=== PATIENT | male | born 1970 | race African-American/Black ===

== ENCOUNTER 2019-03-13 08:58 | Outpatient (CLI) | payer BC ==
--- NOTE | 2019-03-13 09:24 | ULT ---
US Gallbladder RUQ: 03/13/2019 12:00 AM CLINICAL HISTORY: Right upper quadrant abdominal pain. STUDY: Limited right upper quadrant ultrasound of abdomen. COMPARISON: None. FINDINGS: Liver: Size: Normal. Echogenicity: Normal. Contour: Smooth. Mass: None. Bile ducts: No intrahepatic or extrahepatic biliary dilatation. Common bile duct measures 4 mm. Gallbladder: Normal. Pancreas: Head, body, and tail appear normal. Right kidney: No pelvicalyceal dilatation. Right kidney measuring 9.2 cm in length. IMPRESSION: Unremarkable exam.
== END 2019-03-13 08:59 | disposition home or self-care (01) ==
LOC: SCSULT 08:58
PROVIDERS: ATTEND Family Medicine
DX: R10.11 Right upper quadrant pain (principal)
CPT/HCPCS: 76705

== ENCOUNTER 2020-08-05 15:05 | Outpatient (CLI) | payer OTHER ==
--- NOTE | 2020-08-05 16:42 | MRI ---
EXAM: MRI cervical spine without contrast HISTORY: Cervical radiculopathy. COMPARISON: None FINDINGS: Evaluation is limited by patient motion. Cervical alignment appears normal. Vertebral body heights are preserved. No focal concerning regional marrow signal abnormality is evident. The cervical medullary junction and cervical spinal cord demonstrate a normal MR appearance. C2-C3: Mild bilateral facet arthrosis, without significant central canal or foraminal narrowing apparent. C3-C4: Broad-based disc bulge without significant central canal or foraminal narrowing apparent. C4-C5: Broad-based disc bulge and mild bilateral uncinate process hypertrophy without significant central ca nal or foraminal narrowing apparent. C5-C6: Broad-based disc bulge and bilateral uncinate process hypertrophy. Moderate-severe right foraminal na rrowing. No significant central canal or left foraminal narrowing apparent. C6-C7: No significant central canal or foraminal narrowing apparent. C7-T1: No significant central canal or foraminal narrowing apparent. Mild bilateral facet arthrosis. IMPRESSION: Cervical degenerative change as described above.
== END 2020-08-05 15:06 | disposition home or self-care (01) ==
LOC: BICMRI 15:05
PROVIDERS: ATTEND Family Medicine
DX: M47.22 Other spondylosis with radiculopathy, cervical region (principal)
CPT/HCPCS: 72141

== ENCOUNTER 2023-04-21 17:00 | Outpatient (CLI) | payer BC | END 2023-04-21 17:01 | disposition home or self-care (01) | LOC: SLEEPLAB 17:00 | PROVIDERS: ATTEND Family Medicine | DX: G47.33 Obstructive sleep apnea (adult) (pediatric) (principal) | CPT/HCPCS: 95800 ==